=== PATIENT | female | born 1985 | race African-American/Black ===

== ENCOUNTER 2016-11-24 17:37 | Emergency (ER) | payer SELFPAY ==
[~2016-11-24] VITALS: Ht 157.5 cm; Wt 79.4 kg
[~2016-11-24 17:37] MED LIST: BENZ100C PO; ONDA4TAB10 SL; PNV1TABL25 PO
[2016-11-24 18:10] VITALS: BP 128/79
[2016-11-24] MEDS ORDERED: AZIT250T PO (19:12)
[2016-11-24] MEDS ORDERED: BENZ100C PO (19:12)
[2016-11-24] MEDS ORDERED: PRED50TA PO (19:12)
[2016-11-24] MEDS ORDERED: PROAIR RESPICL90 MCG IH (19:12)
--- NOTE | 2016-11-24 19:12 | PHYS DOC ---
Past Medical History Past Medical History: No Pertinent History, Other Additional Past Medical Histor: concussion Past Surgical History: Cholecystectomy, Additional Past Surgical Histo: breast reduction Alcohol Use: Occasionally Drug Use: None Adult General Chief Complaint Chief Complaint: RIB PAIN [facility] HPI Patient is a 31 year old female who presents with a productive cough for 2 weeks. Patient's complaining of rib pain due to the cough. Patient denies any fever. Denies any history of smoking. Review of Systems Review of Systems Constitutional: See history of present illness Eyes: Denies change in visual acuity, redness, or eye pain [] HENT: Denies nasal congestion or sore throat [] Respiratory: Cough Cardiovascular: No additional information not addressed in HPI [] GI: Denies abdominal pain, nausea, vomiting, bloody stools or diarrhea [] : Denies dysuria or hematuria [] Musculoskeletal: Denies back pain or joint pain [] Integument: Denies rash or skin lesions [] Neurologic: Denies headache, focal weakness or sensory changes [] Endocrine: Denies polyuria or polydipsia [] Allergies Allergies Allergies Coded Allergies Type Severity Reaction Last Updated Verified diphenhydramine Allergy Intermediate hives 05/21/14 No doxycycline Allergy Intermediate 03/24/14 Yes Physical Exam Physical Exam Constitutional: Well developed, well nourished, no acute distress, non-toxic appearance. [] HENT: Normocephalic, atraumatic, bilateral external ears normal, oropharynx moist, no oral exudates, nose normal. [] Eyes: PERRLA, EOMI, conjunctiva normal, no discharge. [] Neck: Normal range of motion, no tenderness, supple, no stridor. [] Cardiovascular:Heart rate regular rhythm, no murmur [] Lungs & Thorax: Bilateral breath sounds clear to auscultation [] Abdomen: Bowel sounds normal, soft, no tenderness, no masses, no pulsatile masses. [] Skin: Warm, dry, no erythema, no rash. [] Back: No tenderness, no CVA tenderness. [] Extremities: No tenderness, no cyanosis, no clubbing, ROM intact, no edema. [] Neurologic: Alert and oriented X 3, normal motor function, normal sensory function, no focal deficits noted. [] Psychologic: Affect normal, judgement normal, mood normal. [] Current Patient Data Vital Signs Vital Signs Date Time Temp Pulse Resp B/P Pulse Ox O2 Delivery O2 Flow Rate FiO2 11/24/16 18:10 98.5 101 18 100 Room Air 98.5 EKG EKG [] Radiology/Procedures Radiology/Procedures [] Course & Med Decision Making Course & Med Decision Making Pertinent Labs and Imaging studies reviewed. (See chart for details) Patient is in the ED with a productive cough for 2 weeks. Denies any fever. Chest x-ray interpreted by Dr. Anderson is negative for any acute findings, she probably has acute bronchitis. Discharge with Z-Roger, prednisone for 5 days, Tessalon Perles, albuterol breathing treatments. Provided return precautions and discharged in stable condition. Dragon Disclaimer Dragon Disclaimer This electronic medical record was generated, in whole or in part, using a voice recognition dictation system. Departure Departure Impression: Primary Impression: Acute bronchitis Disposition: HOME, SELF-CARE Condition: STABLE Referrals: VESNA ALEXANDER MD (PCP) Follow-up with your own doctor in one week Patient Instructions: Acute Bronchitis Additional Instructions: You were seen with symptoms consistent with an acute bronchitis. Take the prescribed medicines especially antibiotics until finished. Follow-up with your own doctor in a week, come back to the emergency room for any concerning symptoms. Scripts Azithromycin (Zithromax)250 Mg Tablet1 Pkg PO UD #1 PKG Prov:JESSICA KIM APRN 11/24/16 Prednisone 50 Mg Tablet1 Tab PO DAILY #5 TAB Prov:JESSICA KIM APRN 11/24/16 Benzonatate (Tessalon Perle)100 Mg Capsule1 Cap PO TID #30 CAP Prov:JESSICA KIM APRN 11/24/16 Albuterol Sulfate (Proair Respiclick)90 Mcg Aer.pow.ba1 Puff IH PRN Q6HRS PRN SHORTNESS OF BREATH #1 INHALER Prov:JESSICA KIM APRN 11/24/16 Problem Qualifiers Primary Impression: Acute bronchitis Bronchitis organism: unspecified organism Qualified Code: J20.9 - Acute bronchitis, unspecified JESSICA KIM APRN Nov 24, 2016 19:12
--- NOTE | 2016-11-25 08:44 | RAD ---
Chest, 2 views, 11/24/2016: History: Cough The heart size and pulmonary vascularity are normal. The lungs are clear. There is no evidence of pleural fluid. IMPRESSION: No acute cardiopulmonary abnormality is detected.
== END 2016-11-24 19:15 | disposition home or self-care (01) ==
LOC: ER 17:37
DX: J20.9 Acute bronchitis, unspecified (principal); Z88.1 Allergy status to other antibiotic agents; Z88.8 Allergy status to other drugs, medicaments and biological substances
CPT/HCPCS: 71020; 81025; 99284-25

== ENCOUNTER 2017-02-23 01:30 | Emergency (ER) | payer OTHER ==
[~2017-02-23] VITALS: Ht 157.5 cm; Wt 79.4 kg
[2017-02-23 01:30] VITALS: BP 138/80
[~2017-02-23 01:30] MED LIST changes: +AZIT250T PO; +PRED50TA PO; +PROAIR RESPICL90 MCG IH
[2017-02-23] MEDS ORDERED: IBUP-1007 PO (02:21)
[2017-02-23] MEDS ORDERED: CYCL10TA2 PO (02:21)
--- NOTE | 2017-02-23 02:21 | PHYS DOC ---
Past Medical History Past Medical History: No Pertinent History, Other Additional Past Medical Histor: concussion Past Surgical History: Cholecystectomy, Additional Past Surgical Histo: breast reduction Alcohol Use: Occasionally Drug Use: None Adult General Chief Complaint Chief Complaint: SHOULDER INJURY HPI HPI Patient is a 31 year old who presents here today complaining of shoulder pain. Patient reports she woke up Tuesday with a stiff neck and today when a resident was full and she tried to help her and she injured her left shoulder neck region more. Patient has no past medical history. No history of hypertension diabetes liver longer kidney problems. Patient does smoke no alcohol or drugs. Patient reports her last period was Tuesday. Last sexual activity was 3 years ago. Patient's physical exam was significant for tenderness to palpation to her left sternocleidomastoid region. Patient has no point C-spine T-spine or L-spine tenderness. Patient has no deformity or abnormality in her left shoulder joint. Patient is neurovascular intact otherwise. Assessment and plan this is a 31-year-old female who presents here today with likely muscle strain. Patient be given Toradol and actually in the ER be discharged home with Motrin and Flexeril. Patient's clinical hemodynamic stable for discharge home at this time. Review of Systems Review of Systems Constitutional: Denies fever or chills [] Eyes: Denies change in visual acuity, redness, or eye pain [] HENT: Denies nasal congestion or sore throat [] All other review systems are negative except as documented in history of present illness portion. Current Medications Current Medications Current Medications Medications (Trade) Dose Ordered Sig/Jsesica Start Time Stop Time Status Last Admin Dose Admin Cyclobenzaprine HCl (Flexeril) 10 mg 1X ONCE 02/23/17 02:30 02/23/17 02:31 DC 02/23/17 02:28 10 MG Ketorolac Tromethamine (Toradol Im) 60 mg 1X ONCE 02/23/17 04:00 02/23/17 04:01 DC 02/23/17 02:28 60 MG Ketorolac Tromethamine (Toradol) 60 mg 1X ONCE 02/23/17 02:30 02/23/17 02:31 DC Allergies Allergies Allergies Coded Allergies Type Severity Reaction Last Updated Verified diphenhydramine Allergy Intermediate hives 05/21/14 No doxycycline Allergy Intermediate 03/24/14 Yes Physical Exam Physical Exam Constitutional: Well developed, well nourished, no acute distress, non-toxic appearance. [] HENT: Normocephalic, atraumatic, bilateral external ears normal, oropharynx moist, no oral exudates, nose normal. [] Eyes: PERRLA, EOMI, conjunctiva normal, no discharge. [] Neck: Normal range of motion Cardiovascular:Heart rate regular rhythm, Lungs & Thorax: Bilateral breath sounds clear to auscultation [] Abdomen: Bowel sounds normal, soft, no tenderness, no masses, no pulsatile masses. [] Skin: Warm, dry, no erythema, no rash. [] Back: No tenderness, no CVA tenderness. [] Extremities: No tenderness, no cyanosis, no clubbing, ROM intact, no edema. [] Neurologic: Alert and oriented X 3, normal motor function, normal sensory function, no focal deficits noted. [] Psychologic: Affect normal, judgement normal, mood normal. [] Current Patient Data Vital Signs Vital Signs Date Time Temp Pulse Resp B/P (MAP) Pulse Ox O2 Delivery O2 Flow Rate FiO2 02/23/17 01:30 98.6 98 20 99 Room Air 98.6 EKG EKG [] Radiology/Procedures Radiology/Procedures [] Course & Med Decision Making Course & Med Decision Making Pertinent Labs and Imaging studies reviewed. (See chart for details) [] Dragon Disclaimer Dragon Disclaimer This electronic medical record was generated, in whole or in part, using a voice recognition dictation system. Departure Departure Impression: Primary Impression: Torticollis Additional Impression: Muscle spasm Disposition: 01 HOME, SELF-CARE Condition: IMPROVED Referrals: VESNA ALEXANDER MD (PCP) Patient Instructions: Torticollis, Acute Scripts Ibuprofen (IBUPROFEN) 600 Mg Tablet 600 MG PO PRN Q6HRS Y for PAIN, #20 TAB Prov: LISA DORSEY MD 02/23/17 Cyclobenzaprine Hcl (CYCLOBENZAPRINE HCL) 10 Mg Tablet 10 MG PO TID Y for MUSCLE PAIN, #20 TAB Prov: LISA DORSEY MD 02/23/17 Problem Qualifiers LISA DORSEY MD February 23, 2017 02:21
[2017-02-23] MEDS ORDERED: KETOROLAC TROMETHAMINE 60 MG/2 ML INJ. ONE (02:22)
[2017-02-23] MEDS ORDERED: KETOROLAC 15 MG/ML VIAL. IM ONE (02:30)
[2017-02-23] MEDS ORDERED: CYCLOBENZAPRINE 10 MG TABLET. PO ONE (02:30)
[2017-02-23] MEDS ORDERED: KETOROLAC TROMETHAMINE 60 MG/2 ML INJ. IM ONE (04:00)
== END 2017-02-23 02:40 | disposition home or self-care (01) ==
LOC: ER 01:30
DX: M43.6 Torticollis (principal); M62.838 Other muscle spasm; M25.512 Pain in left shoulder; F17.200 Nicotine dependence, unspecified, uncomplicated; Z88.1 Allergy status to other antibiotic agents; Z88.8 Allergy status to other drugs, medicaments and biological substances
CPT/HCPCS: 96372; 99283; J1885

== ENCOUNTER 2017-04-03 17:46 | Emergency (ER) | payer OTHER ==
[~2017-04-03] VITALS: Ht 157.5 cm; Wt 79.4 kg
[~2017-04-03 17:46] MED LIST changes: +CYCL10TA2 PO; +IBUP-1007 PO
[2017-04-03 18:21] VITALS: BP 128/61
[2017-04-03 18:38] LABS: BILIRUBIN,URINE NEGATIVE (NEG); GLUCOSE,URINE NEGATIVE (NEG); NITRITE,URINE NEGATIVE (NEG); PROTEIN,URINE NEGATIVE (NEG-TRACE); UROBILINOGEN,URINE 0.2 mg/dL (0.2 mg/dL)
[2017-04-03 18:48] LABS: BACTERIA,URINE 0 /HPF (0-FEW); RBC,URINE 0 /HPF (0-2); SQUAMOUS EPITHELIAL CELL,UR FEW /LPF; WBC,URINE 0 /HPF (0-4)
--- NOTE | 2017-04-03 18:52 | PHYS DOC ---
Past Medical History Past Medical History: No Pertinent History, Other Additional Past Medical Histor: concussion Past Surgical History: Cholecystectomy, Additional Past Surgical Histo: breast reduction Alcohol Use: Occasionally Drug Use: None Adult General Chief Complaint Chief Complaint: NAUSEA/VOMITING/DIARRHA HPI HPI Patient is a 31 year old female presents to the emergency department stating that for the last week she has been having some nausea and vomiting with diarrhea. She states within the last 24 hour she has vomited about 4 times with specks of blood noted. She states she's had 4 diarrhea stools that is been stringing but denies any blood in the stools. Patient states that she has been able to keep some fluids down although she has a burning sensation in the epigastric area. Review of Systems Review of Systems Constitutional: Denies fever or chills [] Eyes: Denies change in visual acuity, redness, or eye pain [] HENT: Denies nasal congestion or sore throat [] Respiratory: Denies cough or shortness of breath [] Cardiovascular: No additional information not addressed in HPI [] GI: Denies abdominal pain, complaint of nausea, vomiting, and diarrhea [] : Denies dysuria or hematuria [] Musculoskeletal: Denies back pain or joint pain [] Integument: Denies rash or skin lesions [] Neurologic: Denies headache, focal weakness or sensory changes [] Endocrine: Denies polyuria or polydipsia [] Current Medications Current Medications Current Medications Medications (Trade) Dose Ordered Sig/Jessica Start Time Stop Time Status Last Admin Dose Admin Multi-Ingredient Mouthwash/Gargle (Gi Cocktail Single Dose) 15 ml 1X ONCE 04/03/17 19:00 04/03/17 19:01 DC 04/03/17 18:49 15 ML Allergies Allergies Allergies Coded Allergies Type Severity Reaction Last Updated Verified diphenhydramine Allergy Intermediate hives 05/21/14 No doxycycline Allergy Intermediate 03/24/14 Yes Physical Exam Physical Exam Constitutional: Well developed, well nourished, no acute distress, non-toxic appearance. [] HENT: Normocephalic, atraumatic, bilateral external ears normal, oropharynx moist, no oral exudates, nose normal. Bilateral tympanic membranes appear to be normal. Throat with no erythematous no drainage or discharge noted. Patient with left naris appears swollen. Noted tenderness noted over the frontal or maxillary sinus tenderness. Eyes: PERRLA, EOMI, conjunctiva normal, no discharge. [] Neck: Normal range of motion, no tenderness, supple, no stridor. [] Cardiovascular:Heart rate regular rhythm, no murmur [] Lungs & Thorax: Bilateral breath sounds clear to auscultation [] Abdomen: Bowel sounds hypoactive, soft, no tenderness, no masses, no pulsatile masses. [] Skin: Warm, dry, no erythema, no rash. [] Back: No tenderness Extremities: No tenderness, no cyanosis, no clubbing, ROM intact, no edema. [] Neurologic: Alert and oriented X 3, normal motor function, normal sensory function, no focal deficits noted. [] Psychologic: Affect normal, judgement normal, mood normal. [] Current Patient Data Vital Signs Vital Signs Date Time Temp Pulse Resp B/P (MAP) Pulse Ox O2 Delivery O2 Flow Rate FiO2 04/03/17 18:21 98.9 92 18 100 Room Air 98.9 Lab Values Laboratory Tests Test 04/03/17 17:41 04/03/17 18:21 POC Urine HCG, Qualitative Hcg negative (Negative) Urine Collection Type Unknown Urine Color Yellow Urine Clarity Clear Urine pH 7.0 Urine Specific [place] 1.010 Urine Protein Negative mg/dL (NEG-TRACE) Urine Glucose (UA) Negative mg/dL (NEG) Urine Ketones (Stick) Negative mg/dL (NEG) Urine Blood Negative (NEG) Urine Nitrite Negative (NEG) Urine Bilirubin Negative (NEG) Urine Urobilinogen Dipstick 0.2 mg/dL (0.2 mg/dL) Urine Leukocyte Esterase Negative (NEG) Urine RBC 0 /HPF (0-2) Urine WBC 0 /HPF (0-4) Urine Squamous Epithelial Cells Few /LPF Urine Bacteria 0 /HPF (0-FEW) EKG EKG [] Radiology/Procedures Radiology/Procedures [] Course & Med Decision Making Course & Med Decision Making Pertinent Labs and Imaging studies reviewed. (See chart for details) Urinalysis was negative. Patient was provided with a GI cocktail here in the emergency department which she states is helped with her acid reflex. Patient will be discharged home with a prescription for Zofran with recommendations for Nexium or Zantac or Pepcid [id number]. Patient was instructed to use clear liquid diet for the next 24 hours due to the nausea vomiting and diarrhea. She'll also be provided with amoxicillin due to the swelling and erythematous in the naris. Recommended plenty of fluids. Signs and symptoms to return back to emergency department as been provided. Patient agrees with discharge instructions treatment regimens and follow-up recommendations. Patient does not have any nausea vomiting or diarrhea while here in the emergency department. [] Dragon Disclaimer Dragon Disclaimer This electronic medical record was generated, in whole or in part, using a voice recognition dictation system. Departure Departure Impression: Primary Impression: Vomiting and diarrhea Disposition: HOME, SELF-CARE Condition: STABLE Referrals: VESNA ALEXANDER MD (PCP) Patient Instructions: Diarrhea, [id number], Diet for Diarrhea, Adult, Nausea and Vomiting, [id number] Additional Instructions: Activity as tolerated. Zofran as needed for nausea and vomiting. You may take Zantac, Pepcid or Nexium instructed by patient safety manager. Clear liquid diet for the next 24 hours. Follow-up to primary care physician next 3-5 days. Return back to emergency prior signs and symptoms of become. Scripts Ondansetron (ZOFRAN ODT) 4 Mg Tab.rapdis 1 TAB SL Q8HRS Y for NAUSEA/VOMITING, #10 TAB Prov: HANNAH BRYAN APRN 04/03/17 HANNAH BRYAN APRN Apr 03, 2017 18:52
[2017-04-03] MEDS ORDERED: LIDO:MAALOX:DONNATAL 1:1:1 15 ML SINGLE DOSE SWSW ONE (19:00)
[2017-04-03] MEDS ORDERED: ONDA4TAB10 SL (19:06)
== END 2017-04-03 19:15 | disposition home or self-care (01) ==
LOC: ER 17:46
DX: R11.2 Nausea with vomiting, unspecified (principal); R19.7 Diarrhea, unspecified; R20.8 Other disturbances of skin sensation; Z90.49 Acquired absence of other specified parts of digestive tract; Z98.890 Other specified postprocedural states; Z88.8 Allergy status to other drugs, medicaments and biological substances; Z88.1 Allergy status to other antibiotic agents
CPT/HCPCS: 81001; 81025; 99283

== ENCOUNTER 2017-12-09 08:47 | Emergency (ER) | payer SELFPAY, OTHER ==
[2017-12-09] MEDS: IBUPROFEN 800 MG TABLET. PO (10:30)
== END 2017-12-09 10:42 | disposition home or self-care (01) ==
LOC: ER 10:42
DX: S59.901A Unspecified injury of right elbow, initial encounter (principal); Z90.49 Acquired absence of other specified parts of digestive tract; Z88.8 Allergy status to other drugs, medicaments and biological substances; Z88.1 Allergy status to other antibiotic agents; X58.XXXA Exposure to other specified factors, initial encounter; Y93.89 Activity, other specified; Y92.89 Other specified places as the place of occurrence of the external cause; Y99.8 Other external cause status
CPT/HCPCS: 73080; 99284

== ENCOUNTER 2019-01-07 23:39 | Emergency (ER) | payer SELFPAY ==
[~2019-01-07] VITALS: Ht 157.5 cm; Wt 78.5 kg
[~2019-01-07 23:39] MED LIST changes: +TRAM50TA PO
[2019-01-07 23:56] VITALS: BP 142/84
--- NOTE | 2019-01-08 00:22 | PHYS DOC ---
Past Medical History Past Medical History: No Pertinent History, Other Additional Past Medical Histor: concussion Past Surgical History: Cholecystectomy, Additional Past Surgical Histo: breast reduction Alcohol Use: Occasionally Drug Use: None Adult General Chief Complaint Chief Complaint: HEADACHE HPI HPI 33-year-old female presents to ER with complaints of a headache which started yesterday she states pain is in the right side of her head and wraps around into the posterior part of her head. She denies any dizziness, eye pain, fever, or neck stiffness. She denies previous MONTEJO hx. She denies any recent injury, illness, or travel. Review of Systems Review of Systems Constitutional: Denies fever or chills [] Eyes: Denies change in visual acuity, redness, or eye pain. Denies photosensitivity HENT: Denies nasal congestion or sore throat [] Respiratory: Denies cough or shortness of breath [] Cardiovascular: No additional information not addressed in HPI [] GI: Denies abdominal pain, nausea, vomiting, bloody stools or diarrhea [] : Denies urinary sxs Musculoskeletal: Denies back/neck pain or joint pain [] Integument: Denies rash or skin lesions [] Neurologic: Denies focal weakness or sensory changes. Denies dizziness. Reports MONTEJO on rt side by rt eye into rt side/posterior head All other systems were reviewed and found to be within normal limits, except as documented in this note. Allergies Allergies Allergies Coded Allergies Type Severity Reaction Last Updated Verified diphenhydramine Allergy Intermediate hives 05/21/14 No doxycycline Allergy Intermediate 03/24/14 Yes Physical Exam Physical Exam Constitutional: Well developed, well nourished, no acute distress, non-toxic appearance. Clear speech HENT: Normocephalic, atraumatic, bilateral ears normal, oropharynx moist, no oral exudates, nose normal. [] Eyes: 3mm PERRLA, EOMI- no pain with eye movements, no nystagmus, conjunctiva normal, no discharge. [] Neck: Normal range of motion, no tenderness- no nuchal rigidity, supple, no stridor. [] Cardiovascular: Heart rate regular rhythm, no murmur [] Lungs & Thorax: Bilateral breath sounds clear to auscultation. Resp. equal/ nonlabored Abdomen: Bowel sounds normal, soft, no tenderness Skin: Warm, dry, no erythema, no rash. [] Back: No tenderness, no CVA tenderness. [] Extremities: No tenderness, no cyanosis, no clubbing, ROM intact, no edema. [] Neurologic: Alert and oriented X 3, normal motor function, normal sensory function, no focal deficits noted. Psychologic: Affect normal, judgement normal, mood normal. [] Current Patient Data Vital Signs Vital Signs Date Time Temp Pulse Resp B/P (MAP) Pulse Ox O2 Delivery O2 Flow Rate FiO2 01/07/19 23:56 98.6 89 20 142/84 (103) 99 Room Air 98.6 Lab Values Laboratory Tests Test 01/08/19 00:04 POC Urine HCG, Qualitative Hcg negative (Negative) EKG EKG [] Radiology/Procedures Radiology/Procedures [] Course & Med Decision Making Course & Med Decision Making During patient's exam she patient regarding no glasses or contacts. Patient states she did get new frames and glasses on Tuesday of last week. When patient removed her glasses she reports she had improvement of her headache instantly. Patient states she did not realize that her glasses were putting pressure on her temples. Patient states with her glasses off her headache improved enough to where she is preferring no treatment while in the ER. Gauze was provided and patient placed that behind the frames behind her ears and she reports with her glasses on that improved her headache even more. She denies any vision changes, discussed that if her headache continues while wearing glasses she should have a reevaluation with her window installer. With patient preferring no treatment while in the ER discharge instructions were discussed. Education provided on signs and symptoms to return to ER for. [] Dragon Disclaimer Dragon Disclaimer This electronic medical record was generated, in whole or in part, using a voice recognition dictation system. Departure Departure Impression: Primary Impression: Headache Disposition: HOME, SELF-CARE Condition: STABLE Referrals: VESNA ALEXANDER MD (PCP) Patient Instructions: Headache, FAQs Additional Instructions: As discussed your eye glasses may have to tight of frames and may need adjusted. If you continue to have headaches while wearing your glasses you should follow-up with your window installer for re-evaluation. Tylenol and/or ibuprofen as needed for pain as directed on container. MARIA C HERRERA APRN Jan 08, 2019 00:22
== END 2019-01-08 00:45 | disposition home or self-care (01) ==
LOC: ER 23:39
DX: R51 Headache (principal); H57.12 Ocular pain, left eye; Z88.1 Allergy status to other antibiotic agents; Z88.5 Allergy status to narcotic agent
CPT/HCPCS: 81025; 99282; 99283

== ENCOUNTER 2019-07-12 10:12 | Emergency (ER) | payer MEDICAID ==
[~2019-07-12] VITALS: Ht 157.5 cm; Wt 83.0 kg
[2019-07-12 11:45] VITALS: BP 120/66
--- NOTE | 2019-07-12 11:54 | VNOTE ---
CALL BACK NOTE CALL BACK Patient declines medical screening evaluation. Apparently, patient had a family emergency and needed to department the emergency department immediately. I return exudate evaluation which she declined. I encouraged her to return as soon as possible. FAITH TOBAR DO Jul 12, 2019 11:54
== END 2019-07-12 11:50 | disposition left against medical advice (07) ==
LOC: ER 10:12
DX: R10.84 Generalized abdominal pain (principal); K62.89 Other specified diseases of anus and rectum; F17.200 Nicotine dependence, unspecified, uncomplicated
CPT/HCPCS: 81025; 99283

== ENCOUNTER 2020-11-03 17:59 | Emergency (ER) | payer MEDICAID, OTHER ==
[~2020-11-03] VITALS: Ht 157.5 cm; Wt 82.0 kg
[2020-11-03] MEDS ORDERED: KETOROLAC 60 MG/2 ML VIAL. IM ONE (18:30)
[2020-11-03] MEDS ORDERED: CYCLOBENZAPRINE 10 MG TABLET. PO ONE (18:30)
[2020-11-03] MEDS ORDERED: methylPREDNISolone ACETATE 80 MG/ML VIAL. IM ONE (18:30)
[2020-11-03] MEDS ORDERED: CYCL10TA2 PO (18:40)
[2020-11-03] MEDS ORDERED: IBUP-1007 PO ×2 (18:40→18:44)
--- NOTE | 2020-11-03 18:40 | PHYS DOC ---
Past Medical History Past Medical History: No Pertinent History, Other Additional Past Medical Histor: concussion Past Surgical History: Cholecystectomy, Additional Past Surgical Histo: breast reduction Smoking Status: Current Every Day Smoker Alcohol Use: Occasionally Drug Use: None General Adult EDM: Chief Complaint: HEADACHE HPI: HPI: Patient is a 35 year old female presents to the emergency department complaining of left-sided neck pain after sleeping with 2-year-old son for the last 2 nights. Patient states her pain starts at the top of her left shoulder and travels up to near the back of her ear. Patient states it is difficult for her to turn her head to the left. Patient denies any recent fever or chills, denies swollen glands, denies cough, denies shortness of breath or chest pain. Patient denies headaches. Patient denies visual changes or eye pain. Patient denies dizziness. Patient denies any trauma to her head or neck. She denies cigarette smoking, denies alcohol consumption, denies illicit drug use. Review of Systems: Review of Systems: 14 body systems of review of systems have been reviewed. See HPI for pertinent positives and negative responses, otherwise all other systems are negative, nonpertinent or noncontributory. Heart Score: Risk Factors: Risk Factors: DM, Current or recent (<one month) smoker, HTN, HLP, family history of CAD, obesity. Risk Scores: Score 0 - 3: 2.5% MACE over next 6 weeks - Discharge Home Score 4 - 6: 20.3% MACE over next 6 weeks - Admit for Clinical Observation Score 7 - 10: 72.7% MACE over next 6 weeks - Early Invasive Strategies Current Medications: Current Medications Medications (Trade) Dose Ordered Sig/Jessica Start Time Stop Time Status Last Admin Dose Admin Cyclobenzaprine HCl (Flexeril) 10 mg 1X ONCE 11/03/20 18:30 11/03/20 18:31 UNV Ketorolac Tromethamine (Toradol Im) 60 mg 1X ONCE 11/03/20 18:30 11/03/20 18:31 UNV Methylprednisolone Acetate (DEPO-Medrol 80MG VIAL) 80 mg 1X ONCE 11/03/20 18:30 11/03/20 18:31 UNV Allergies: Allergies: Allergies Coded Allergies Type Severity Reaction Last Updated Verified diphenhydramine Allergy Intermediate hives 05/21/14 No doxycycline Allergy Intermediate 03/24/14 Yes Physical Exam: PE: Constitutional: Well developed, well nourished, no acute distress, non-toxic appearance. HENT: Normocephalic, atraumatic, bilateral external ears normal, oropharynx moist, no oral exudates, nose normal. No lymphadenopathy of the head. Eyes: PERRLA, EOMI, conjunctiva normal, no discharge. Neck: Normal range of motion, supple, no stridor. Pain to the left side of neck to palpation, muscle spasming during examination, no meningismus signs, no nuchal rigidity. No lymphadenopathy of the neck. Cardiovascular:Heart rate regular rhythm, no murmur Lungs & Thorax: Bilateral breath sounds clear to auscultation Abdomen: Bowel sounds normal, soft, no tenderness, no masses, no pulsatile masses. Skin: Warm, dry, no erythema, no rash. Back: No tenderness, no CVA tenderness. Extremities: No tenderness, no cyanosis, no clubbing, ROM intact, no edema. Neurologic: Alert and oriented X 3, normal motor function, normal sensory function, no focal deficits noted. Psychologic: Affect normal, judgement normal, mood normal. Current Patient Data: Vital Signs: Vital Signs Date Time Temp Pulse Resp B/P (MAP) Pulse Ox O2 Delivery O2 Flow Rate FiO2 11/03/20 18:19 98.3 86 16 148/75 (99) 99 Room Air 98.3 EKG: EKG: [] Radiology/Procedures: Radiology/Procedures: [] Course & Med Decision Making: Course & Med Decision Making Pertinent Labs and Imaging studies reviewed. (See chart for details) 35-year-old female, vital signs reviewed, presents emergency department with left-sided stiff neck. Physical examination consistent with right neck. Patient given muscle relaxers and pain medicines in the emergency department, will be sent home with prescription of 10 mg Flexeril, 600 mg ibuprofen. Patient gave verbal understanding the discharge home instructions, physical exam findings, follow-up with primary care soon, return to ER precautions or concerns. Dragon Disclaimer: Christineon Disclaimer: This electronic medical record was generated, in whole or in part, using a voice recognition dictation system. Departure Departure Impression: Primary Impression: Wry neck Disposition: 01 DC HOME SELF CARE/HOMELESS Condition: GOOD Referrals: NO PCP (PCP) Additional Instructions: Please take medications as directed, follow-up with your primary care for ongoing aches and pains, you may use heating pad at home, I will give you a work excuse for the next 2 days, return to the emergency department for worsening symptoms or other concerns. Do not operate heavy machinery when taking muscle relaxers. Scripts Ibuprofen (IBUPROFEN) 600 Mg Tablet 600 MG PO PRN Q6HRS PRN for INFLAMMATION, #30 TAB 0 Refills Prov: CAM BOWERS APRN 11/03/20 Cyclobenzaprine Hcl (CYCLOBENZAPRINE HCL) 10 Mg Tablet 10 MG PO TID PRN PRN for MUSCLE PAIN, #15 TAB 0 Refills Prov: CAM BOWERS APRN 11/03/20 CAM BOWERS APRN Nov 03, 2020 18:40
[2020-11-03 19:00] VITALS: BP 146/74
== END 2020-11-03 19:00 | disposition home or self-care (01) ==
LOC: ER 17:59
DX: M43.6 Torticollis (principal); M54.2 Cervicalgia; F17.200 Nicotine dependence, unspecified, uncomplicated; Z90.49 Acquired absence of other specified parts of digestive tract; Z98.890 Other specified postprocedural states
CPT/HCPCS: 96372; 99284; J1040; J1885

== ENCOUNTER 2021-03-09 10:42 | Emergency (ER) | payer MEDICAID ==
[~2021-03-09] VITALS: Ht 157.5 cm; Wt 84.0 kg
[2021-03-09 11:50] VITALS: BP 111/71
[2021-03-09] MEDS ORDERED: METH4TAB2 PO (12:33)
[2021-03-09] MEDS ORDERED: CEPH500C PO (12:34)
[2021-03-09] MEDS ORDERED: CETI10TA74 PO (12:34)
--- NOTE | 2021-03-09 12:39 | PHYS DOC ---
Past Medical History Past Medical History: Other Additional Past Medical Histor: concussion Past Surgical History: Cholecystectomy, Additional Past Surgical Histo: breast reduction Smoking Status: Current Every Day Smoker Alcohol Use: Occasionally Drug Use: None General Adult EDM: Chief Complaint: FACE PROBLEM HPI: HPI: 35-year-old -Citizen Of [place] female presents tto he ED with complaints of waking to to a swollen right cheek-says she feels as if it spreading to her nose and under her right eye. Denies any blurry vision, rash, epiphora or increased warmth to the skin. Is no associated dental pain. Reports she started phentermine on February 16 for weight loss and has had difficulty sleeping. 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 Does report itchy watery eyes, sneezing and facial pressure. Review of Systems: Review of Systems: Constitutional: Denies fever or chills. [] Eyes: Denies change in visual acuity. [] HENT: Denies nasal congestion or sore throat. [] Respiratory: Denies cough or shortness of breath. [] Cardiovascular: Denies chest pain or edema. [] GI: Denies abdominal pain, nausea, vomiting, : Denies dysuria or vaginal bleeding Musculoskeletal: Denies back pain or joint pain. [] Integument: Denies rash or diaphoresis Neurologic: Denies headache, neck stiffness, focal weakness or sensory changes. [] Endocrine: Denies polyuria or polydipsia. [] Lymphatic: Denies swollen glands. [] Psychiatric: Denies depression or anxiety. [] Heart Score: C/O Chest Pain: No Risk Factors: Risk Factors: DM, Current or recent (<one month) smoker, HTN, HLP, family history of CAD, obesity. Risk Scores: Score 0 - 3: 2.5% MACE over next 6 weeks - Discharge Home Score 4 - 6: 20.3% MACE over next 6 weeks - Admit for Clinical Observation Score 7 - 10: 72.7% MACE over next 6 weeks - Early Invasive Strategies Allergies: Allergies: Allergies Coded Allergies Type Severity Reaction Last Updated Verified diphenhydramine Allergy Intermediate hives 05/21/14 No doxycycline Allergy Intermediate 03/24/14 Yes Physical Exam: PE: Constitutional: Well developed, well nourished, no acute distress, non-toxic appearance. HENT: Normocephalic, atraumatic, dentition appears normal with no obvious signs of dental caries or infection, oropharynx patent with no edema, tongue normal size, lips with no angioedema, right cheek slightly more edematous than the left but obvious, eyelids and skin under both eyes are symmetric Eyes: EOMI, conjunctiva normal, no discharge. Neck: Normal range of motion, supple, Cardiovascular: S1/2 present, regular rhythm Lungs & Thorax: Speaking in full sentences, bilateral equal chest rise, no tachypnea or increased work of breathing, no drooling, no spitting, no tripod position Abdomen: soft, no tenderness, Skin: Warm, dry, no erythema, no rash. [] Back: No tenderness, no CVA tenderness. [] Extremities: No tenderness, no cyanosis, no lower extremity edema Neurologic: Alert and oriented X 3, normal motor function, normal sensory function, no focal deficits noted. [] Psychologic: Affect normal, judgement normal, mood normal. [] Current Patient Data: Vital Signs: Vital Signs Date Time Temp Pulse Resp B/P (MAP) Pulse Ox O2 Delivery O2 Flow Rate FiO2 03/09/21 11:50 97.8 82 16 111/71 (84) 100 Room Air 97.8 EKG: EKG: [] Radiology/Procedures: Radiology/Procedures: [] Course & Med Decision Making: Course & Med Decision Making Pertinent Labs and Imaging studies reviewed. (See chart for details) Concern for right cheek swelling -no associated rash/skin color changes/or increased warmth. Dexamethasone given in ED. Will prescribe Medrol Dosepak and Zyrtec. Does not take lisinopril. No prior h/o allergic reactions. No associated tongue/oropharyngeal edema. We discussed option for antibiotics to cover for cellulitis although I do not suspect any cellulitis given patient's physical exam. Will discharge home with strict ED return precautions were given for fever, worsening head or neck swelling, difficulties breathing, speech changes, worsening facial swelling or nuchal rigidity. Encouraged urgent outpatient follow-up with PMD and allergy testing as needed. Life-threatening processes were considered but are low suspicion at this time, given history, physical exam and ED workup. Pt was educated on all prescription medications and adverse effects. All patient's questions were answered and pt was stable at time of discharge. Life/limb-threatening differential includes but is not limited to, anaphylaxis, angioedema, shock, contrast induced allergic reaction, carcinoid syndrome, head/neck infection/sepsis, asthma exacerbation, or airway emergency. I spoken with the patient and her caregivers. I explained the patient's condition, diagnoses and treatment plan based on the information available to me at this time. I have answered the patient and her caregiver's questions and addressed any concerns. The patient and her caregivers have a good under standing of patient's diagnosis, condition and treatment plan as can be expected at this point. Vital signs have been stable. Patient's condition is stable and appropriate for discharge from the emergency department. Patient will pursue further outpatient evaluation with primary care physician or other designated or consulting physician as outlined in the discharge instructions. The patient and/or caregivers are agreeable to this plan of care and follow-up instructions have been explained in detail. The patient and/or caregivers have received these instructions in written form and have expressed an understanding of the discharge instructions. The patient and/or caregivers are aware that any significant change of condition or worsening of symptoms shou ld prompt immediate return to this or the closest emergency department [facility] Disclaimer: Miguel Disclaimer: This electronic medical record was generated, in whole or in part, using a voice recognition dictation system. Departure Departure Impression: Primary Impression: Swelling, cheek Additional Impression: Seasonal allergies Disposition: 01 HOME / SELF CARE / HOMELESS Condition: STABLE Referrals: NO PCP (PCP) follow up w/pcp or FOLLOW UP WITH FAMILY MEDICINE: [address], [address] [place] [address] Patient Instructions: Allergies, Generic, Allergy Tests, Angioedema Additional Instructions: [facility]-for [facility] as needed [facility] Call for appointment [phone] [facility] on the [facility] [address] [place] [address], [address] (Address for directions and navigation systems: [address] [place] [address]) EMERGENCY DEPARTMENT GENERAL DISCHARGE INSTRUCTIONS Thank you for coming to [facility] Emergency Department (ED) today and trusting us with you care. We trust that you had a positive experience in our Emergency Department. If you wish to speak to the department management, you may call the Director at [phone]. YOUR FOLLOW UP INSTRUCTIONS ARE FOLLOWS: 1. Do you have a private Doctor? If you do not have a private doctor, please ask for a resource list of physicians or clinics that may be able to assist you with follow up care. 2. The Emergency Physicain has interpreted your x-rays. The X-Ray specialist will also review them. If there is a change in the findings, you will be notified in 48 hours when at all possible. 3. A lab test or culture has been done, your results will be reviewed and you will be notified if you need a change in treatment. ADDITIONAL INSTRUCTIONS AND INFORMATION: 1. Your care today has been supervised by a physician who is specially trained in emergency care. Many problems require more than one evaluation for a complete diagnosis and treatment. We recommend that you schedule your follow up appointment as recommended to ensure complete treatment of you illness or injury. If you are unable to obtain follow up care and continue to have a problem, or if your condition worsens, we recommend that you return to the ED. 2. We are not able to safely determine your condition over the phone nor are we able to give sound medical advice over the phone. For these safety reasons, if you call for medical advice we will ask you to come to the ED for further evaluation. 3. If you have any questions regarding these discharge instructions please call the ED at [phone]. SAFETY INFORMATION: In the interest of safety, wellness, and injury prevention; we encourage you to wear your sealbelt, if you smoke; quite smoking, and we encourage family to use a protective helmet for bicycling and other sporting events that present an increased risk for head injury. IF YOUR SYMPTOMS WORSEN OR NEW SYMPTOMS DEVELOP, OR YOU HAVE CONCERNS ABOUT YOUR CONDITION; OR IF YOUR CONDITION WORSENS WHILE YOU ARE WAITING FOR YOUR FOLLOW UP APPOINTMENT; EITHER CONTACT YOUR PRIMARY CARE DOCTOR, THE PHYSICIAN WHOSE NAME AND NUMBER YOU WERE GIVEN, OR RETURN TO THE ED IMMEDIATELY. Scripts Cephalexin (CEPHALEXIN) 500 Mg Capsule 1 CAP PO QID for 10 Days, #40 CAP IF you should develop any redness/warmth/rash Prov: MARIA C MARION DO 03/09/21 Cetirizine Hcl (ZYRTEC) 10 Mg Tablet 1 TAB PO DAILY for 30 Days, #30 TAB 2 Refills Prov: MARIA C MARION DO 5/31/21 Methylprednisolone (MEDROL) 4 Mg Tab.ds.pk 1 PKG PO UD for inflammation, #1 PKG Prov: MARIA C MARION DO 03/09/21 MAIRA C MARION DO March 09, 2021 12:39
[2021-03-09] MEDS ORDERED: DEXAMETHASONE 4 MG TABLET PO ONE (12:45)
== END 2021-03-09 13:10 | disposition home or self-care (01) ==
LOC: ER 10:42
DX: J30.2 Other seasonal allergic rhinitis (principal); R22.0 Localized swelling, mass and lump, head; F17.200 Nicotine dependence, unspecified, uncomplicated; Z88.1 Allergy status to other antibiotic agents; Z88.8 Allergy status to other drugs, medicaments and biological substances
CPT/HCPCS: 99283

== ENCOUNTER 2021-10-02 01:59 | Emergency (ER) | payer MEDICAID ==
[~2021-10-02] VITALS: Ht 157.5 cm; Wt 81.8 kg
[~2021-10-02 01:59] MED LIST changes: +CEPH500C PO; +CETI10TA74 PO; +CYCL10TA19 PO; -CYCL10TA2 PO; +METH4TAB2 PO
--- NOTE | 2021-10-02 03:35 | PHYS DOC ---
Past Medical History Past Medical History: Other Additional Past Medical Histor: concussion Past Surgical History: Cholecystectomy, Additional Past Surgical Histo: breast reduction Smoking Status: Current Every Day Smoker Alcohol Use: Occasionally Drug Use: None General Adult EDM: Chief Complaint: ABDOMINAL PAIN HPI: HPI: Patient is a 36 year old female who presents with report of lower thoracic/upper lumbar back pain. No specific injury or trauma is reported. Pain is worse with movement and range of motion. No radiation of pain. No abdominal pain. No urinary symptoms. No nausea, vomiting. No incontinence. No numbness or tingling or motor weakness. No fevers or chills. She denies chest pain, cough, dyspnea. Review of Systems: Review of Systems: Constitutional: Denies fever or chills. [] Respiratory: Denies cough or shortness of breath. [] Cardiovascular: Denies chest pain or edema. [] GI: Denies abdominal pain, nausea, vomiting, or diarrhea : Denies urinary symptoms, denies incontinence Musculoskeletal: Back pain. No joint pain or swelling. Integument: Denies rash. [] Neurologic: Denies headache, focal weakness or sensory changes. [] Endocrine: Denies polyuria or polydipsia. [] Lymphatic: Denies swollen glands. [] Psychiatric: Denies depression or anxiety. [] Heart Score: C/O Chest Pain: No Risk Factors: Risk Factors: DM, Current or recent (<one month) smoker, HTN, HLP, family history of CAD, obesity. Risk Scores: Score 0 - 3: 2.5% MACE over next 6 weeks - Discharge Home Score 4 - 6: 20.3% MACE over next 6 weeks - Admit for Clinical Observation Score 7 - 10: 72.7% MACE over next 6 weeks - Early Invasive Strategies Allergies: Allergies: Allergies Coded Allergies Type Severity Reaction Last Updated Verified diphenhydramine Allergy Intermediate hives 05/21/14 No doxycycline Allergy Intermediate 03/24/14 Yes Physical Exam: PE: Constitutional: Well developed, well nourished, no acute distress, non-toxic appearance. [] HENT: Normocephalic, atraumatic Neck: Normal range of motion, no tenderness, supple, no stridor. [] Cardiovascular:Heart rate regular rhythm,, +2 radial and +2 posterior tibial pulses bilaterally, no edema, warm and well-perfused Lungs & Thorax: Bilateral breath sounds clear to auscultation [] Abdomen: Abdomen soft, nondistended, nontender to palpation, no palpable masses organomegaly, no CVA tenderness, no flank or abdominal ecchymoses Skin: Warm, dry, no erythema, no rash. [] Back: No midline tenderness or step-offs. Paraspinal soft tissue lower thoracic and upper lumbar tenderness. Palpation does reproduce pain, mild spasm is noted. Full range of motion. No deformity. Extremities: No tenderness, no cyanosis, no clubbing, ROM intact, no edema. No calf tenderness. Neurologic: Alert and oriented X 3, normal motor function, normal sensory function, no focal deficits noted. No foot drop. 5 out of 5 motor strength all 4 extremities. Gait is steady and nonantalgic. Psychologic: Affect normal, judgement normal, mood normal. [] EKG: EKG: [] Radiology/Procedures: Radiology/Procedures: IMAGING REPORT Signed PATIENT: PAUL BEARDEN ACCOUNT: [id number] : 1985 LOCATION: ER AGE: 36 SEX: F EXAM STATUS: DEP ER ORD. PHYSICIAN: JORDON PRABHAKAR DO REASON: back pain PROCEDURE: THORACIC SPINE 3V EXAM: 1. THORACIC SPINE 3 VIEWS. 2. LUMBAR SPINE 3 VIEWS. HISTORY: Back pain. COMPARISON: None. FINDINGS: There is a minimal thoracic dextrocurvature, within normal limits. Vertebral body heights are maintained, and no fractures are identified. Int ervertebral disc heights are maintained. Lumbar alignment is maintained. No fractures are identified. Intervertebral disc heights are maintained. Surgical clips are noted in the right upper quadrant and left hemipelvis. Stool throughout the colon is consistent with constipation. IMPRESSION: 1. No fracture or malalignment. 2. Correlate for constipation. Electronically signed by: Maurice Paul MD (10/02/2021 6:19 AM) [facility] DICTATED and SIGNED BY: RITIKA PAUL MD DATE: 10/02/21 [id number] 0 Course & Med Decision Making: Course & Med Decision Making Pertinent Labs and Imaging studies reviewed. (See chart for details) Intramuscular Toradol was given for pain. She reports improvement of pain symptoms. I discussed the findings, differential diagnosis and plan of care with her. No indication for further imaging, invasive exams or laboratory evaluation at this time based on current clinical presentation. I discussed home care instructions, including alternating ice and heat, gentle stretching, in addition to prescribed medications. I recommend she follow-up with her primary care physician. Return precautions are given. She verbalizes understanding. Miguel Disclaimer: Miguel Disclaimer: This electronic medical record was generated, in whole or in part, using a voice recognition dictation system. Departure Departure Impression: Primary Impression: Back pain Disposition: LEFT AWOL/ELOPED Condition: STABLE Referrals: NO PCP (PCP) Patient Instructions: Back Exercises, Back Pain, Adult Additional Instructions: Return to the ER for new injury or trauma, if you develop any painful skin rash, fever 100.4 or higher, painful urination, abdominal pain, nausea or vomiting, if you have more severe uncontrolled pain or for any other concerns. You may continue taking [id number] Tylenol or ibuprofen. Use the muscle relaxer as needed/as directed. You may alternate ice and heat. Follow-up with primary care physician. Scripts Cyclobenzaprine Hcl (CYCLOBENZAPRINE HCL) 10 Mg Tablet 1 TAB PO BID for muscle spasm, #14 TAB Prov: JORDON PRABHAKAR DO 10/02/21 JORDON PRABHAKAR DO Oct 02, 2021 03:35
[2021-10-02 03:45] LABS: BILIRUBIN,URINE NEGATIVE (NEG); CLARITY,URINE CLEAR; COLOR,URINE YELLOW; NITRITE,URINE NEGATIVE (NEG); PH,URINE 6.5 (<5.0-8.0); PROTEIN,URINE NEGATIVE (NEG-TRACE)
[2021-10-02 03:54] LABS: BACTERIA,URINE FEW /HPF (0-FEW); RBC,URINE 0 /HPF (0-2); U PREG PATIENT NEGATIVE (NEG); WBC,URINE OCC /HPF (0-4)
[2021-10-02] MEDS ORDERED: KETOROLAC 60 MG/2 ML VIAL. IM ONE (04:00)
[2021-10-02 05:13] VITALS: BP 113/63
[2021-10-02] MEDS ORDERED: CYCL10TA19 PO (05:13)
--- NOTE | 2021-10-02 06:22 | RAD ---
EXAM: 1. THORACIC SPINE 3 VIEWS. 2. LUMBAR SPINE 3 VIEWS. HISTORY: Back pain. COMPARISON: None. FINDINGS: There is a minimal thoracic dextrocurvature, within normal limits. Vertebral body heights a re maintained, and no fractures are identified. Intervertebral disc heights are maintained. Lumbar alignment is maintained. No fractures are identified. Intervertebral disc heights are maintain ed. Surgical clips are noted in the right upper quadrant and left hemipelvis. Stool throughout the co laura is consistent with constipation. IMPRESSION: 1. No fracture or malalignment. 2. Correlate for constipation. Electronically signed by: Maurice Paul MD (10/02/2021 6:19 AM) [facility]
== END 2021-10-02 05:26 | disposition left against medical advice (07) ==
LOC: ER 01:59
DX: M54.50 Low back pain, unspecified (principal); M54.6 Pain in thoracic spine; F17.200 Nicotine dependence, unspecified, uncomplicated; Z90.49 Acquired absence of other specified parts of digestive tract; Z88.1 Allergy status to other antibiotic agents; Z88.5 Allergy status to narcotic agent
CPT/HCPCS: 72072; 72100; 81001; 81025; 96372; 99285; J1885